=== PATIENT | male | born 1955 | race Caucasian/White ===

== ENCOUNTER 2018-12-09 13:31 | Day surgery (SDC) | payer OTHER ==
[2018-12-09 14:08] VITALS: RESP 16
[2018-12-09] MEDS ORDERED: BUPIVACAINE HCL 0.25% MPF 30 ML SOL INFIL ONE (14:14)
[2018-12-09] MEDS ORDERED: TRIAMCINOLONE ACETONIDE 40 MG/ML SUS ONE (14:14)
[2018-12-09 14:42] VITALS: BP 162/93; PULSE 76; TEMP 97.8; O2SAT 95
== END 2018-12-09 14:50 | disposition home or self-care (01) | DRG 554 ==
LOC: SURG 13:31
PROVIDERS: ATTEND Nurse Anesthetist, Certified Registered
DX: M12.9 Arthropathy, unspecified (principal)
CPT/HCPCS: J3300

== ENCOUNTER 2019-01-14 12:05 | Day surgery (SDC) | payer OTHER ==
[2019-01-14] MEDS ORDERED: BUPIVACAINE HCL 0.25% MPF 30 ML SOL INFIL ONE (13:01)
[2019-01-14] MEDS ORDERED: DEXAMETHASONE SOD PHOS PF 10 MG/ML SOL IJ ONE (13:01)
[2019-01-14 13:24] VITALS: PULSE 68; RESP 20; TEMP 97.3; O2SAT 96
[2019-01-14 13:36] VITALS: BP 134/91
== END 2019-01-14 13:44 | disposition home or self-care (01) | DRG 552 ==
LOC: SURG 12:05
PROVIDERS: ATTEND Nurse Anesthetist, Certified Registered
DX: M51.17 Intervertebral disc disorders with radiculopathy, lumbosacral region (principal)
CPT/HCPCS: J1100

== ENCOUNTER 2019-03-24 09:32 | Day surgery (SDC) | payer OTHER ==
[2019-03-24] MEDS ORDERED: BUPIVACAINE HCL 0.25% MPF 30 ML SOL INFIL ONE (10:05)
[2019-03-24] MEDS: DEXAMETHASONE SOD PHOS PF 10 MG/ML SOL IJ ONE ×2 (10:29→10:32)
[2019-03-24 10:38] VITALS: RESP 16; TEMP 88.1; O2SAT 98
[2019-03-24 10:47] VITALS: BP 136/84; PULSE 74
== END 2019-03-24 10:57 | disposition home or self-care (01) | DRG 552 ==
LOC: SURG 09:32
PROVIDERS: ATTEND Nurse Anesthetist, Certified Registered
DX: M48.062 Spinal stenosis, lumbar region with neurogenic claudication (principal)
CPT/HCPCS: J1100

== ENCOUNTER 2019-05-05 12:32 | Day surgery (SDC) | payer OTHER ==
[2019-05-05 12:54] VITALS: BP 120/86; PULSE 94; RESP 18; TEMP 98.4; O2SAT 96
== END 2019-05-05 13:30 | disposition home or self-care (01) | DRG 554 ==
LOC: SURG 12:32
PROVIDERS: ATTEND Nurse Anesthetist, Certified Registered
DX: M12.88 Other specific arthropathies, not elsewhere classified, other specified site (principal); Z53.9 Procedure and treatment not carried out, unspecified reason